=== PATIENT | male | born 1945 | race Caucasian/White ===

== ENCOUNTER → 2017-01-23 | Outpatient (CLI) | payer OTHER ==
[~2017-01-23] VITALS: Ht 190.5 cm; Wt 117.9 kg
[~2017-01-23] MED LIST: ASPIR 8181 MG PO; FISH OIL 1,001000 M2 PO; GLIPIZIDE ER10 MG PO; GLUCOPHAGE XR500 MG PO; LISINOPRIL20 MG PO; NIACIN 500 MG500 M1 PO; NORCO 5-325 TA1 EACH PO; ROSUVASTATIN CA40 MG PO
--- NOTE | ~2017-01-23 | HPC ---
[facility] [place] [address] PAIN MANAGEMENT CONSULTATION Name: CHHAYA HOWELL Room #: REG MARIA LUZ Benjamin#: [id number] Admission: 01/23/17 Attend Phys: Jed Wills DO Discharge: Date of : 43 Report #: [id number] THIS REPORT FOR: //name// CC: Liv Wills The patient is a very pleasant 71-year-old gentleman seen in consultation at request of Dr. Joseph Deal for evaluation of pain, left gluteal area, hip, down the lateral leg to his ankle. The patient notes had similar symptoms back in 2009, had a decompressive laminectomy (microdiscectomy L4-L5) with overall improvement of baseline pain. He notes last October or November while carrying 2 large heavy bags of salt, he twisted and developed acute exacerbation of pain. Within 24 hours, he had the aforementioned left gluteal pain, hip pain, left lateral leg to his foot. He has tried chiropractic manipulation, physical therapy including stretching, salj-bcf-qmkfcid OTC with nominal efficacy. He has some p.r.n. hydrocodone. He notes pain is exacerbated with lifting, walking or standing. Nothing in particular seems to give him relief. He rates his pain anywhere from 8-10 on a 0-10 visual analog scale. Fortunately, he denies any specific myelopathic symptoms. No bowel or bladder continence changes or saddle anesthesia. REVIEW OF SYSTEMS: Complete review of systems attached to chart and gone over with the patient. He is , does not smoke or drink alcohol to excess. History of non-insulin dependent diabetes, takes glipizide and metformin, though he is unaware what his last hemoglobin A1c was. Hypertension for which he takes lisinopril, dyslipidemia for which he takes rosuvastatin. History of TIA back in 1999, status post right carotid endarterectomy and he has been asymptomatic since. Surgeries include total knee arthroplasty in 2001, the aforementioned lumbar decompressive laminectomy in 2009, tonsillectomy, appendectomy and carotid endarterectomy. The patient worked for the [employer] for 45 years. He has been retired for 1 month. Pain impact score is 40/70. PHYSICAL EXAMINATION: Reveals a moderately obese, 6 feet 3 inch, 260 pound gentleman with a BMI of 32.5 kilograms per meter squared. Blood pressure is 138/80, pulse , respirations are 20. Cranial nerves 2-12 are grossly intact. Pupils are equal and reactive to light and accommodation. Extraocular muscles are intact. Cervical range of motion is full. Thyroid is unremarkable. There is slight nystagmus, lateral gaze deviation. There is sequelae of right carotid endarterectomy. Upper extremity strength is preserved. Heart is regular and rhythmical without murmur. Lungs clear to auscultation. Abdomen shows an endomorphic build. Rises from chair using armrest. Again mild ataxia with gait. He can walk on his toes and heels, but with assistance for balance, [address] [address] PAIN MANAGEMENT CONSULTATION Name: CHHAYA HOWELL JR Room #: REG CLI Sourav#: [id number] Admission: 01/23/17 Attend Phys: Jed Wills DO Discharge: Date of : 43 Report #: [id number] walking "5 foot." Gait is tandem. Lumbar flexion is limited to 70 degrees. Tender in the low back area, though no discrete trigger points are noted. Left leg shows slight diminution in strength. Hip flexion, lower extremity extension, perhaps 4/5. Right leg is robust at 5/5. Does have a scar in the left distal quadriceps status post an old quad injury that was surgically repaired. Patellar reflexes are generally preserved. Achilles reflex absent on the left, 1/4 on the right. Nominally positive straight leg raise at 30 degrees on the left. Skin integument is otherwise intact. MRI from 01/06/2017 notes L3-L4 to have a severe right neural foraminal narrowing, again contralateral to primary pain. L4-L5; however, does show a left paracentral disk abutting the left L5 nerve root corresponding with the patient's symptoms. L5-S1 also notes left paracentral disk herniation. ASSESSMENT: Symptomatic lumbar radiculopathy status post decompressive laminectomy in a very pleasant 71-year-old gentleman. RECOMMENDATIONS: 1. Zoic-mbc-hghjguk Aleve OTC b.i.d. 2. Epidural injection under fluoroscopy today at L5-S1. We will reduce standard steroid dose to 60 mg in consideration of non-insulin dependent diabetes. 3. Follow up in 3-4 weeks for reevaluation and consideration for left L5-S1 transforaminal epidural injection if indicated clinically. Thank you for allowing me to participate in the patient's care. I will keep you abreast of his progress. PROCEDURE NOTE: Lumbar epidural injection under fluoroscopy. PROCEDURE: Lumbar epidural steroid injection. PROCEDURE NOTE: After both written and informed consent to include risk of spinal cord damage, increased pain, weakness and dural puncture, the patient was taken to the fluoroscopy suite, placed in the prone position. After sterile prep and drape, a skin wheal with lidocaine was raised. A 22-gauge epidural Tuohy needle was inserted in the midline at L5-S1 with good loss to resistance. Negative aspiration for cerebrospinal fluid or blood was noted. Then 1 mL of Omnipaque under biplanar fluoroscopy showed good spread within the epidural space. This was followed with injectate of 60 mg of triamcinolone plus 1 mL of 1.5% preservative-free Xylocaine, 0.5 mL Xylocaine was then injected to flush [facility] [address] [place] [address] PAIN MANAGEMENT CONSULTATION Name: CHHAYA HOWELL Room #: REG [facility]#: [id number] Admission: 01/23/17 Attend Phys: Jed Wills DO Discharge: Date of : 43 Report #: [id number] the needle; it was removed. The patient was monitored for an appropriate period of time and discharged in good and stable condition. By: [id number] Jed Wills DO /nt
[2017-01-23 10:14] VITALS: BP 138/80
== END ==
LOC: PAIN 06:51
DX: M54.16 Radiculopathy, lumbar region (principal); M96.1 Postlaminectomy syndrome, not elsewhere classified; E11.9 Type 2 diabetes mellitus without complications; I10 Essential (primary) hypertension; E78.5 Hyperlipidemia, unspecified; Z86.73 Personal history of transient ischemic attack (TIA), and cerebral infarction without residual deficits; Z87.891 Personal history of nicotine dependence